=== PATIENT | male | born 1965 | race Caucasian/White ===

== ENCOUNTER → 2017-05-17 | Outpatient (CLI) | payer OTHER ==
[~2017-05-17] MED LIST: AMPI1INJ IV.; INSDGI SC; ONDA4TAB46 PO; OXYC-57 PO; POLY335019 PO; PRT/20 PO
--- NOTE | 2017-05-17 14:40 | DIAGNOSTIC IMAGING REPORT ---
L TOE(S) MIN 2 VIEWS CLINICAL HISTORY: 52 years-old Male presenting with LEFT TOE INJURY. TECHNIQUE: Frontal, oblique, and lateral views of the left second toe were obtained. COMPARISON: None. FINDINGS: Suboptimal positioning on frontal view limits evaluation. Diffuse soft tissue swelling of the second toe suggested. Ossific fragments noted along the dorsal aspect of the head of the middle phalanx on lateral view though no donor site is noted at the base of the distal phalanx to suggest avulsion fracture. Hyperflexion of the distal interphalangeal joint appears to be chronic rather than acute subluxation. No convincing evidence of fracture. No osseous erosion or periosteal reaction. Significant atherosclerotic disease. IMPRESSION: 1. Diffuse soft tissue swelling of the second toe without evidence of acute osseous injury allowing for suboptimal positioning. This limits the diagnostic sensitivity the exam. 2. Suspected degenerative related calcification at the dorsal aspect of the distal interphalangeal joint. 3. No radiographic evidence of osteomyelitis. 4. Significant atherosclerosis, which likely implies underlying diabetes. Electronically signed by: Keith Samuel M.D. 05/17/2017 2:39 PM Dictated Date/Time: 05/17/2017 2:36 PM
[2017-05-17 17:04] LABS: BASO % 0.2 %; BASO ABS # 0.01 K/uL (0-0.2); EOS % 2.3 %; EOS ABS # 0.15 K/uL (0-0.5); HEMATOCRIT 39.1 % (42-52); HEMOGLOBIN 13.5 g/dL (14.0-18.0); IG# 0.01 K/uL (0.00-0.02); LYMPH % 16.4 %; LYMPH ABS # 1.05 K/uL (1.2-3.4); MEAN CELL VOLUME 87.1 fL (80-100); MEAN CORPUSCULAR HEMOGLOBIN 30.1 pg (25-34); MEAN CORPUSCULAR HGB CONC 34.5 g/dl (32-36); MEAN PLATELET VOLUME 9.7 fL (7.4-10.4); MONO % 12.7 %; MONO ABS # 0.81 K/uL (0.11-0.59); NEUT % 68.2 %; NEUT ABS # 4.37 K/uL (1.4-6.5); PLATELET COUNT 243 K/uL (130-400); RED CELL DISTRIBUTION WIDTH CV 13.1 % (11.5-14.5); RED CELL DISTRIBUTION WIDTH SD 42.2 fL (36.4-46.3)
[2017-05-17 17:35] LABS: BLOOD UREA NITROGEN 30 mg/dl (7-18); CALCIUM 9.8 mg/dl (8.5-10.1); CARBON DIOXIDE 25 mmol/L (21-32); CHOLESTEROL 256 mg/dl (0-200); CREATININE 1.72 mg/dl (0.60-1.40); GLUCOSE 342 mg/dl (70-99); POTASSIUM 4.6 mmol/L (3.5-5.1); SODIUM 132 mmol/L (136-145)
[2017-05-18 06:56] LABS: HEMOGLOBIN A1C 10.7 % (4.5-5.6)
== END | disposition home or self-care (01) ==
LOC: C.RADPV 14:09
PROVIDERS: ATTEND Nurse Practitioner
DX: S99.922A Unspecified injury of left foot, initial encounter (principal); X58.XXXA Exposure to other specified factors, initial encounter; E11.39 Type 2 diabetes mellitus with other diabetic ophthalmic complication; L03.039 Cellulitis of unspecified toe; E78.00 Pure hypercholesterolemia, unspecified